=== PATIENT | male | born 1975 | race Caucasian/White ===

== ENCOUNTER 2024-08-20 10:20 | Observation (INO) ==
[2024-08-20 11:16] LABS: Basophils # (auto) 0.08 K/uL (0.00-0.20); Basophils % (auto) 1.2 %; Eosinophils # (auto) 0.21 K/uL (0.00-0.50); Eosinophils % (auto) 3.2 %; Hematocrit (blood only) 44.1 % (42.0-52.0); Hemoglobin 15.9 g/dl (14.0-18.0); Immature Granulocytes # (auto) 0.01 K/uL (0.01-0.20); Immature Granulocytes % (auto) 0.2 %; Lymphocytes # (auto) 2.02 K/uL (1.20-3.40); Lymphocytes % (auto) 30.7 %; Mean Corpuscular Hemoglobin 29.6 pg (25.0-34.0); Mean Corpuscular Hgb Conc 36.1 g/dL (32.0-36.0); Mean Corpuscular Volume 82.1 fL (80.0-100.0); Monocytes # (auto) 0.45 K/uL (0.11-0.59); Monocytes % (auto) 6.8 %; Neutrophils # (auto) 3.82 K/uL (1.40-6.50); Neutrophils % (auto) 57.9 %; Platelet Count 503 K/uL (130-400); RDW Coefficient of Variation 12.4 % (11.5-14.5); RDW Standard Deviation 37.1 fL (36.4-46.3); Red Blood Count 5.37 M/uL (4.70-6.10); White Blood Count 6.59 K/ul (4.8-10.8)
--- NOTE | 2024-08-20 11:20 | Emergency Department Note ---
History of Present Illness General Chief complaint: Dizziness Stated complaint: NUMBNESS DOWN L ARM, LIGHTHEADED, TACHY Time Seen by Provider: 08/20/24 11:05 Source: patient, RN notes reviewed and old records reviewed (Old medical records were attempted to be reviewed but there are no old records at this hospital. Nurse's notes were reviewed and I agree with.) Mode of arrival: ambulatory Limitations: no limitations History of Present Illness This patient is a 48-year-old male who comes in after having an episode where his left arm got numb and tingly. 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 It may have been slightly weak. There are no other associated symptoms besides he felt lightheaded and felt like his heart was racing he felt anxious. He had no numbness or weakness in the face or leg. no change in vision. no difficulty speaking or swallowing .no headache. He feels fine at present he is never had this before no neck pain. No chest pain. no shortness of breath. No fall or trauma. he did not have an electrical shock. Home Medications Medication Instructions Recorded Confirmed Type No Known Home Medications 08/20/24 08/20/24 History Allergies Allergy/AdvReac Type Severity Reaction Status Date / Time No Known Allergies Allergy Unverified 08/20/24 12:41 Past Med/Surg History Problem List (Updated 08/20/24 @ 13:32 by Maurice Pandya MD) TIA (transient ischemic attack) (Acute) Numbness and tingling in left arm (Acute) Social History Smoking Status: Never smoker Feels Safe at Home: Yes Immunizations: Past medical historydenies significant past medical history. Specifically denies diabetes, hypertension, hypercholesteremia, cardiac disease, neurologic disease, stroke or TIA Allergiesno known drug allergies Medicationsnone Social history does not smoke he drinks occasionally. Denies drug use Review of Systems A total of 10 systems reviewed and were otherwise negative Physical Exam Vital Signs Vital Signs - 24 hr 08/20/24 10:25 08/20/24 11:40 08/20/24 12:07 Temperature 36.8 C Temperature Source Temporal Artery Scan Pulse Rate 101 H 86 Pulse Rate [Apical] Pulse Rhythm Regular Pulse Rhythm [Apical] Pulse Strength Normal Pulse Strength [Apical] Respiratory Rate 16 Respiratory Effort / Characteristics Non-Labored Spontaneous Respiratory Depth Normal Respiratory Pattern Regular Blood Pressure 163/109 H Blood Pressure [Right Arm] Blood Pressure Mean 127 Blood Pressure Mean [Right Arm] Blood Pressure Position Sitting Blood Pressure Position [Right Arm] Pulse Oximetry 99 98 Oxygen Delivery Method Room Air Room Air Sepsis Recent Fever Within 48 Hours No Sepsis New/Unexplained Change in Mental Status No Sepsis Action Taken by Nursing No Action Required 08/20/24 12:07 08/20/24 12:07 Temperature 36.9 C Temperature Source Oral Pulse Rate 78 Pulse Rate [Apical] 86 Pulse Rhythm Regular Pulse Rhythm [Apical] Regular Pulse Strength Pulse Strength [Apical] Normal Respiratory Rate 20 20 Respiratory Effort / Characteristics Non-Labored Spontaneous Respiratory Depth Normal Respiratory Pattern Regular Blood Pressure Blood Pressure [Right Arm] 130/75 Blood Pressure Mean Blood Pressure Mean [Right Arm] 93 Blood Pressure Position Blood Pressure Position [Right Arm] Semi-fowlers Pulse Oximetry 98 98 Oxygen Delivery Method Room Air Room Air Sepsis Recent Fever Within 48 Hours Sepsis New/Unexplained Change in Mental Status Sepsis Action Taken by Nursing General: Well developed well nourished middle-age male who appears asymptomatic and in no acute distress, breathing comfortably on room air. Normal speech HEENT: Normal cephalic atraumatic. Pupils are equal round and reactive to light. Extraocular movements are intact. Oropharynx is pink with moist mucous membranes. No swelling of the mouth lips or tongue. Neck: Supple with a midline trachea. No meningeal signs or stiffness, no JVD or bruits. No Stridor. Chest: Clear to auscultation bilaterally. No wheezes or rhonchi. No increased work of breathing. Heart: Regular rate and rhythm without murmurs or gallops. Abdomen: Soft nontender, nondistended without rebound guarding or rigidity. Extremities: No cyanosis clubbing or edema. No calf tenderness or assymetry Spine/Back. Non tender to palpation. No CVA tenderness Skin: Good turgor without rashes. Neurologic exam: Cranial nerves two through 12 are intact. Motor and sensation are intact and symmetrical throughout. No tremor. No pronator drift. Finger- nose intact. Course Administered Medications Discontinued Medications Aspirin (Aspirin 81 Mg Chew) 324 mg PO NOW STA Stop: 08/20/24 12:33 Last Admin: 08/20/24 12:39 Dose: 324 mg Documented By: EVAN Ioversol (Optiray 320 125ml) 120 ml IV ONCE ONE Stop: 08/20/24 11:55 Last Admin: 08/20/24 11:55 Dose: 120 ml Documented By: HANSA Medical Decision Making Differential Diagnosis Peripheral neuropathy, neck or disc related process, central neurologic process/stroke/TIA, peripheral nerve process, electrolyte or metabolic abnormality, cardiac disease, infection Medical Records Attestation: I reviewed the patient's medical records. Home Medications Current Medication List: was personally reviewed by hi Laboratory Data Attestation: I reviewed the patient's lab results. 08/20/24 10:43 08/20/24 10:43 Lab Results 08/20/24 Range/Units 10:43 WBC 6.59 (4.8-10.8) K/ul RBC 5.37 (4.70-6.10) M/uL Hgb 15.9 (14.0-18.0) g/dl Hct 44.1 (42.0-52.0) % MCV 82.1 (80.0-100.0) fL MCH 29.6 (25.0-34.0) pg MCHC 36.1 H (32.0-36.0) g/dL RDW Std Deviation 37.1 (36.4-46.3) fL RDW Coeff of Joselin 12.4 (11.5-14.5) % Plt Count 503 H (130-400) K/uL MPV 9.0 L (9.4-12.4) fL Immature Gran % (Auto) 0.2 % Neut % (Auto) 57.9 % Lymph % (Auto) 30.7 % [place] % (Auto) 6.8 % Eos % (Auto) 3.2 % Baso % (Auto) 1.2 % Neut # (Auto) 3.82 (1.40-6.50) K/uL Lymph # (Auto) 2.02 (1.20-3.40) K/uL [place] # (Auto) 0.45 (0.11-0.59) K/uL Eos # (Auto) 0.21 (0.00-0.50) K/uL Baso # (Auto) 0.08 (0.00-0.20) K/uL Immature Gran # (Auto) 0.01 (0.01-0.20) K/uL PT 10.9 (9.0-12.0) Seconds INR 1.0 (0.9-1.1) APTT 29 (21-31) Seconds PTT Ratio 1.1 Sodium 137 (136-145) mmol/L Potassium 3.6 (3.5-5.1) mmol/L Chloride 102 (98-107) mmol/L Carbon Dioxide 26 (21-32) mmol/L Anion Gap 9 (3-11) BUN 15 (6-23) mg/dl Creatinine 1.02 (0.6-1.4) mg/dl Est Cr Clr Drug Dosing 97.7 ml/min eGFR 91.79 BUN/Creatinine Ratio 14.7 (10-20) Glucose 112 H (70-99(Fasting)) mg/dl Calcium 9.6 (8.6-10.3) mg/dl Magnesium 1.8 (1.7-2.4) mg/dl Total Bilirubin 0.6 (0.2-1.0) mg/dl AST 18 (13-39) U/L ALT 31 (7-52) U/L Alkaline Phosphatase 44 (34-104) U/L Troponin I High Sens 2.4 (0-20) pg/ml Total Protein 7.1 (6.0-8.3) gm/dl Albumin 4.6 (3.4-5.0) gm/dl Globulin 2.5 (2.5-4.0) gm/dl Albumin/Globulin Ratio 1.8 (0.9-2) Imaging Data Attestation: I personally reviewed and interpreted this imaging study as follows: My Impression: Chest x-rayno acute infiltrate, failure, pneumothorax seen Radiologist's Impression: Chest X-Ray 08/20/24 10:51 XR chest 1V portable HISTORY: 48 years-old Male Chest pain, nonspecific COMPARISON: None TECHNIQUE: AP view of the chest FINDINGS: Cardiomediastinal and hilar silhouettes are within normal limits. No pneumothorax, pleural effusion, airspace consolidation or pulmonary edema. Bones appear grossly intact. IMPRESSION: No acute process. ACT 112: Negative or not required by law. The above report was generated using voice recognition software. It may contain grammatical, syntax or spelling errors. Electronically signed by: Crow Minor M.D. 08/20/2024 11:[address] 08/20/24 11:14 CT head/brain wo con CLINICAL HISTORY: 48 years-old Male with neuro deficit, acute stroke suspected. Acute stroke like symptoms TECHNIQUE: Multiple axial CT images of the head were obtained without contrast. A dose lowering technique was utilized adhering to the principles of ALARA. COMPARISON: CTA head of same day FINDINGS: No acute intracranial hemorrhage, midline shift, intracranial mass, hydrocephalus, territorial ischemia or abnormal extra-axial collection. The calvarium is intact. The paranasal sinuses, mastoid air cells, and middle ear cavities are clear. IMPRESSION: No acute intracranial abnormality identified. ACT 112: Negative or not required by law. The above report was generated using voice recognition software. It may contain grammatical, syntax or spelling errors. Electronically signed by: Crow Minor M.D. 08/20/2024 12:14 PM Head CTA 08/20/24 11:14 CTA ANGIOGRAPHY OF THE HEAD CLINICAL HISTORY: neuro deficit, acute stroke suspected COMPARISON STUDY: No previous studies for comparison. TECHNIQUE: Helical axial images of the head were obtained following uneventful intravenous administration of 120 cc of Optiray. Sagittal and coronal reconstructions were viewed as well as maximal intensity projections on an independent 3-D workstation. Automated exposure control was utilized for the study. A dose lowering technique was utilized adhering to the principles of ALARA. FINDINGS: No acute intracranial hemorrhage, midline shift or mass effect is present. Brain volume is normal. Ventricular system is normal. Basal cisterns are patent. There is an apparent 3 mm filling defect within the inferior aspect of the right cavernous carotid on image 87 of 254. Nonocclusive thrombus cannot be excluded. No additional abnormalities are identified on this exam. The bilateral M1, M2, A1 and A2 segments are patent. The posterior circulation is intact. There is persistence of the right posterior cerebral artery. Major dural sinuses are patent. IMPRESSION: 1. Apparent 3 mm filling defect within the inferior aspect of the right cavernous carotid. Although this may be artifactual, a nonocclusive thrombus cannot be excluded. MRI of the brain and MRA of the head could be considered for further evaluation. Findings discussed with Dr. Pandya at time of dictation. 2. Otherwise, unremarkable CTA of the head. ACT 112: Negative or not required by law. Electronically signed by: Theo Watt M.D. 08/20/2024 12:22 PM Neck CTA 08/20/24 11:14 CT ANGIOGRAPHY OF THE NECK WITH CONTRAST CLINICAL HISTORY: neuro deficit, acute stroke suspected COMPARISON STUDY: No previous studies for comparison. Technique: CT angiography of the carotid and vertebral arteries was obtained using Optiray and 3D reconstruction on an independent workstation. NASCET criteria was utilized. Automated exposure control was utilized for the study. A dose lowering technique was utilized adhering to the principles of ALARA. CT DOSE: 1207.93 mGy.cm Findings: Visualized portions of the lung apices are unremarkable. There is no cervical lymphadenopathy. There are no cervical spine fractures. There is a 1.4 cm cystic left lobe thyroid nodule. The bilateral common carotid, cervical internal carotid and vertebral arteries are patent. There is no stenosis or dissection within the neck. There is no aneurysm within the neck. CTA of the head will be reported separately. IMPRESSION: Unremarkable CTA of the neck. ACT 112: Negative or not required by law. Electronically signed by: Theo Watt M.D. 08/20/2024 12:17 PM ECG Data Indication: + chest pain Rate (beats per minute): 88 Rhythm: + normal sinus ECG Intervals/blocks: + Normal QRS, + Normal QT and + Normal ME ECG [place]: + Normal ECG ST segments: + Normal ST segments ECG Findings: no PACs or no PVCs Comparison ECG Date: no prior available MDM Narrative This patient comes in as scribed above. He was placed in room B12. Here for treatment evaluation of an episode where his left arm felt tingly. It lasted about a minute. He has no neurologic deficits at present and is a healthy middle-age male without significant risk factors for neurologic process EKG was obtained and shows no ischemic changes or ectopy. Blood work was obtained also I did neuroimaging with CAT scan of the head as well as angiography of the head neck. His blood work was unremarkable. EKG was unremarkable. CAT scan of his head was unremarkable however on the CT angiography of his neck there is a small filling defect in the right internal carotid. It could be artifactual but I am concerned after talking to the radiologist that he does need a full stroke workup given that his symptoms were on the left side is possible that it could be from a right carotid clot or lesion. I did the patient aspirin 324 mg chewable he will need an MRI and further inpatient workup. I did discuss the case at length with the [facility] hospitalist team and they saw in the ER will admit/observe him for these measures Continuous cardiac monitoring: Orders placed in EMR for continuous sexologist call upon my evaluation, the patient noted to be in normal sinus rhythm rate of 75 Impression & Plan TIA (transient ischemic attack), Numbness and tingling in left arm Discharge Plan Visit Data Chief Complaint: Dizziness Stated Complaint: NUMBNESS DOWN L ARM, LIGHTHEADED, TACHY ED Provider: Maurice Pandya Discharge Problem: TIA (transient ischemic attack), Numbness and tingling in left arm Forms Stand Alone Forms: [employer] Prescriptions Prescriptions: No Action No Known Home Medications Referrals Referrals: PCP,NO [Physician] -
[2024-08-20 11:33] LABS: Albumin Globulin Ratio 1.8 (0.9-2); Albumin Level 4.6 gm/dl (3.4-5.0); BUN Creatinine Ratio 14.7 (10-20); Bilirubin,Total 0.6 mg/dl (0.2-1.0); Calcium 9.6 mg/dl (8.6-10.3); Creatinine Clr Calc Pharmacy 97.7 ml/min; Globulin 2.5 gm/dl (2.5-4.0); Magnesium 1.8 mg/dl (1.7-2.4); Potassium 3.6 mmol/L (3.5-5.1); Total Protein 7.1 gm/dl (6.0-8.3)
--- NOTE | 2024-08-20 11:33 | XRay Report ---
XR chest 1V portable HISTORY: 48 years-old Male Chest pain, nonspecific COMPARISON: None TECHNIQUE: AP view of the chest FINDINGS: Cardiomediastinal and hilar silhouettes are within normal limits. No pneumothorax, pleural effusion, airspace consolidation or pulmonary edema. Bones appear grossly intact. IMPRESSION: No acute process. ACT 112: Negative or not required by law. The above report was generated using voice recognition software. It may contain grammatical, syntax o r spelling errors. Electronically signed by: Crow Minor M.D. 08/20/2024 11:32 AM
[2024-08-20 11:36] LABS: Troponin I High Sensitivity 2.4 pg/ml (0-20)
[2024-08-20 11:41] LABS: Partial Thromboplastin Ratio 1.1; Partial Thromboplastin Time 29 Seconds (21-31); Prothrombin Time 10.9 Seconds (9.0-12.0)
[2024-08-20] MEDS: OPTIRAY 320 125ml IV ONE (11:55)
--- NOTE | 2024-08-20 12:17 | CT Scan Report ---
CT head/brain wo con CLINICAL HISTORY: 48 years-old Male with neuro deficit, acute stroke suspected. Acute stroke like sy mptoms TECHNIQUE: Multiple axial CT images of the head were obtained without contrast. A dose lowering tech nique was utilized adhering to the principles of ALARA. COMPARISON: CTA head of same day FINDINGS: No acute intracranial hemorrhage, midline shift, intracranial mass, hydrocephalus, territorial ischem ia or abnormal extra-axial collection. The calvarium is intact. The paranasal sinuses, mastoid air cells, and middle ear cavities are clear . IMPRESSION: No acute intracranial abnormality identified. ACT 112: Negative or not required by law. The above report was generated using voice recognition software. It may contain grammatical, syntax o r spelling errors. Electronically signed by: Crow Minor M.D. 08/20/2024 12:14 PM
--- NOTE | 2024-08-20 12:18 | CT Scan Report ---
CT ANGIOGRAPHY OF THE NECK WITH CONTRAST CLINICAL HISTORY: neuro deficit, acute stroke suspected COMPARISON STUDY: No previous studies for comparison. Technique: CT angiography of the carotid and vertebral arteries was obtained using Optiray and 3D rec onstruction on an independent workstation. NASCET criteria was utilized. Automated exposure control was utilized for the study. A dose lowering technique was utilized adhering to the principles of ALA RA. CT DOSE: 1207.93 mGy.cm Findings: Visualized portions of the lung apices are unremarkable. There is no cervical lymphadenopat hy. There are no cervical spine fractures. There is a 1.4 cm cystic left lobe thyroid nodule. The chepe ateral common carotid, cervical internal carotid and vertebral arteries are patent. There is no steno sis or dissection within the neck. There is no aneurysm within the neck. CTA of the head will be repo rted separately. IMPRESSION: Unremarkable CTA of the neck. ACT 112: Negative or not required by law. Electronically signed by: Theo Watt M.D. 08/20/2024 12:17 PM
--- NOTE | 2024-08-20 12:23 | CT Scan Report ---
CTA ANGIOGRAPHY OF THE HEAD CLINICAL HISTORY: neuro deficit, acute stroke suspected COMPARISON STUDY: No previous studies for comparison. TECHNIQUE: Helical axial images of the head were obtained following uneventful intravenous administr ation of 120 cc of Optiray. Sagittal and coronal reconstructions were viewed as well as maximal inten sity projections on an independent 3-D workstation. Automated exposure control was utilized for the study. A dose lowering technique was utilized adhering to the principles of ALARA. FINDINGS: No acute intracranial hemorrhage, midline shift or mass effect is present. Brain volume is normal. Ventricular system is normal. Basal cisterns are patent. There is an apparent 3 mm filling de fect within the inferior aspect of the right cavernous carotid on image 87 of 254. Nonocclusive throm bus cannot be excluded. No additional abnormalities are identified on this exam. The bilateral M1, M2 , A1 and A2 segments are patent. The posterior circulation is intact. There is persistence of t he right posterior cerebral artery. Major dural sinuses are patent. IMPRESSION: 1. Apparent 3 mm filling defect within the inferior aspect of the right cavernous carotid. Although t his may be artifactual, a nonocclusive thrombus cannot be excluded. MRI of the brain and MRA of the h ead could be considered for further evaluation. Findings discussed with Dr. Pandya at time of dictat ion. 2. Otherwise, unremarkable CTA of the head. ACT 112: Negative or not required by law. Electronically signed by: Theo Watt M.D. 08/20/2024 12:22 PM
[2024-08-20] MEDS: ASPIRIN 81 MG CHEW PO STA (12:39)
--- NOTE | 2024-08-20 12:44 | Electrocardiogram Report ---
Test Reason : Blood Pressure : */* mmHG Vent. Rate : 88 BPM Atrial Rate : 88 BPM P-R Int : 142 ms QRS Dur : 86 ms QT Int : 352 ms P-R-T Axes : 63 16 33 degrees QTcB Int : 425 ms Normal sinus rhythm Possible Left atrial enlargement Borderline ECG No previous ECGs available Confirmed by Harris Brody ([id number]) on 08/20/2024 12:44:08 PM Referred By: Confirmed By: Harris Brody
--- NOTE | 2024-08-20 13:06 | History & Physical Report ---
Date of Service August 20, 2024 Assessment & Plan (1) Numbness and tingling in left arm: Plan: Possible TIA Acute Left arm weakness and numbness Elevated Blood Pressure - Admit to PCU for observation - Stroke order set completed, no indication for thrombolytic - CT head reviewed and is showing Right carotid 3 mm filling defect within the inferior aspect of the right cavernous carotid - MRI and MRA brain ordered to further evaluate - Tele-neurology contacted by the ER- Recs aspirin and plavix - Will allow permissive hypertension with SBP 140-170 - Neurology consulted - PT/OT consults placed - Check A1C, lipids with am labs - Full dose asa given in the ER, start asa 81 mg daily and atorvastatin 40 mg HS DVT ppx: teds, scds, ambulatory Lines: PIV x 1 FEN/GI: Regular diet CODE: Full code Dispo: From home, likely to remain in the hospital x 1-2 days A total of 75 minutes were spent with greater than 50% of that time face to face with the patient, personally reviewing all current laboratories, imaging studies, past medication reconciliation, outpatient chart review, and discussion with specialists to collaborate care for the patient with attending. Please see attending documentation for corrections and/or additions. History of Present Illness Chief Complaint: Left arm weakness and numbness Primary Care Provider: BALWINDER SUE This is a 48-year-old male without past medical history, who presented to the ER today while having developed left arm weakness and numbness, left hand weakness and was trying to tighten up a fitting with pipe, which lasted approximately 1 minute. He has never had this happen before. 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 Denies any electrical shock, trauma, or injury sustained to this area of his body or head or neck. he admits to transient dizziness when the numbness occurred. Denies any changes in vision, headache, changes in smell, nausea, vomiting, etc. He does not take any home medications. Pt admits to feeling anxious while being here, but otherwise his symptoms have resolved. Patient underwent CT imaging which showed a right carotid artery filling deficit measuring 3 mm which was reported by the radiologist as possibly artifact versus a filling defect caused by thrombus, and therefore MRI is recommended. No surgical history. Family Hx: Dad: Type I Diabetes, Brother: 48 yo had Heart attack, now age 51 and also hx of colon cancer Social hx: no tobacco use, occasional alcohol use, no ilicit drug use. Allergies Allergy/AdvReac Type Severity Reaction Status Date / Time No Known Allergies Allergy Unverified 08/20/24 12:41 Home Medications Medication Instructions Recorded Confirmed Type No Known Home Medications 08/20/24 08/20/24 History Past Med/Surg History Problem List (Updated 08/20/24 @ 13:32 by Maurice Pandya MD) TIA (transient ischemic attack) (Acute) Numbness and tingling in left arm (Acute) Social History Smoking Status: Never smoker Feels Safe at Home: Yes Review of Systems Review of Systems: Constitutional: No fever, sweats or chills Eyes: No diplopia, no worsening or blurred vision ENT: normal hearing, no trouble swallowing Respiratory: No cough, sputum, dyspnea at rest or on exertion Cardiovascular: No chest pain, tightness or palpitations Abdomen: No pain, nausea, vomiting, diarrhea or constipation Musculoskeletal: No joint pain, calf pain, swelling Neurologic: As per HPI, currently no weakness, numbness/tingling, or balance problems Psychiatric: No anxiety or depression Skin: No rash or itch Physical Exam Physical Exam: Please refer to physical addendum per attending. Results & Data Results & Data Vital Signs (Past 12 Hours) Vital Signs Temp Pulse Pulse Resp BP BP Pulse Ox 08/20/24 12:07 78 20 98 08/20/24 12:07 36.9 C 86 20 130/75 98 08/20/24 12:07 98 08/20/24 11:40 86 08/20/24 10:25 36.8 C 101 H 16 163/109 H 99 O2 Del Method 08/20/24 12:07 Room Air 08/20/24 12:07 Room Air 08/20/24 12:07 Room Air 08/20/24 11:40 08/20/24 10:25 Room Air Laboratory Results 08/20/24 10:43 WBC 6.59 RBC 5.37 Hgb 15.9 Hct 44.1 MCV 82.1 MCH 29.6 MCHC 36.1 H RDW Std Deviation 37.1 RDW Coeff of Joselin 12.4 Plt Count 503 H MPV 9.0 L Immature Gran % (Auto) 0.2 Neut % (Auto) 57.9 Lymph % (Auto) 30.7 Bland % (Auto) 6.8 Eos % (Auto) 3.2 Baso % (Auto) 1.2 Neut # (Auto) 3.82 Lymph # (Auto) 2.02 Bland # (Auto) 0.45 Eos # (Auto) 0.21 Baso # (Auto) 0.08 Immature Gran # (Auto) 0.01 PT 10.9 INR 1.0 APTT 29 PTT Ratio 1.1 Sodium 137 Potassium 3.6 Chloride 102 Carbon Dioxide 26 Anion Gap 9 BUN 15 Creatinine 1.02 Est Cr Clr Drug Dosing 97.7 eGFR 91.79 BUN/Creatinine Ratio 14.7 Glucose 112 H Calcium 9.6 Magnesium 1.8 Total Bilirubin 0.6 AST 18 ALT 31 Alkaline Phosphatase 44 Troponin I High Sens 2.4 Total Protein 7.1 Albumin 4.6 Globulin 2.5 Albumin/Globulin Ratio 1.8 Diagnostic Findings Chest X-Ray 08/20/24 10:51 XR chest 1V portable HISTORY: 48 years-old Male Chest pain, nonspecific COMPARISON: None TECHNIQUE: AP view of the chest FINDINGS: Cardiomediastinal and hilar silhouettes are within normal limits. No pneumothorax, pleural effusion, airspace consolidation or pulmonary edema. Bones appear grossly intact. IMPRESSION: No acute process. ACT 112: Negative or not required by law. The above report was generated using voice recognition software. It may contain grammatical, syntax or spelling errors. Electronically signed by: Crow Minor M.D. 08/20/2024 11:[address] 08/20/24 11:14 CT head/brain wo con CLINICAL HISTORY: 48 years-old Male with neuro deficit, acute stroke suspected. Acute stroke like symptoms TECHNIQUE: Multiple axial CT images of the head were obtained without contrast. A dose lowering technique was utilized adhering to the principles of ALARA. COMPARISON: CTA head of same day FINDINGS: No acute intracranial hemorrhage, midline shift, intracranial mass, hydro cephalus, territorial ischemia or abnormal extra-axial collection. The calvarium is intact. The paranasal sinuses, mastoid air cells, and middle ear cavities are clear. IMPRESSION: No acute intracranial abnormality identified. ACT 112: Negative or not required by law. The above report was generated using voice recognition software. It may contain grammatical, syntax or spelling errors. Electronically signed by: Crow Minor M.D. 08/20/2024 12:14 PM Head CTA 08/20/24 11:14 CTA ANGIOGRAPHY OF THE HEAD CLINICAL HISTORY: neuro deficit, acute stroke suspected COMPARISON STUDY: No previous studies for comparison. TECHNIQUE: Helical axial images of the head were obtained following uneventful intravenous administration of 120 cc of Optiray. Sagittal and coronal reconstructions were viewed as well as maximal intensity projections on an independent 3-D workstation. Automated exposure control was utilized for the study. A dose lowering technique was utilized adhering to the principles of ALARA. FINDINGS: No acute intracranial hemorrhage, midline shift or mass effect is present. Brain volume is normal. Ventricular system is normal. Basal cisterns are patent. There is an apparent 3 mm filling defect within the inferior aspect of the right cavernous carotid on image 87 of 254. Nonocclusive thrombus cannot be excluded. No additional abnormalities are identified on this exam. The bilateral M1, M2, A1 and A2 segments are patent. The posterior circulation is intact. There is persistence of the right posterior cerebral artery. Major dural sinuses are patent. IMPRESSION: 1. Apparent 3 mm filling defect within the inferior aspect of the right cavernous carotid. Although this may be artifactual, a nonocclusive thrombus cannot be excluded. MRI of the brain and MRA of the head could be considered for further evaluation. Findings discussed with Dr. Pandya at time of dictation. 2. Otherwise, unremarkable CTA of the head. ACT 112: Negative or not required by law. Electronically signed by: Theo Watt M.D. 08/20/2024 12:22 PM Neck CTA 08/20/24 11:14 CT ANGIOGRAPHY OF THE NECK WITH CONTRAST CLINICAL HISTORY: neuro deficit, acute stroke suspected COMPARISON STUDY: No previous studies for comparison. Technique: CT angiography of the carotid and vertebral arteries was obtained using Optiray and 3D reconstruction on an independent workstation. NASCET criteria was utilized. Automated exposure control was utilized for the study. A dose lowering technique was utilized adhering to the principles of ALARA. CT DOSE: 1207.93 mGy.cm Findings: Visualized portions of the lung apices are unremarkable. There is no cervical lymphadenopathy. There are no cervical spine fractures. There is a 1.4 cm cystic left lobe thyroid nodule. The bilateral common carotid, cervical internal carotid and vertebral arteries are patent. There is no stenosis or dissection within the neck. There is no aneurysm within the neck. CTA of the head will be reported separately. IMPRESSION: Unremarkable CTA of the neck. ACT 112: Negative or not required by law. Electronically signed by: Theo Watt M.D. 08/20/2024 12:17 PM ECG Additional Comments: Reviewed personally, NSR, no signs of ST wave inversions or ischemia. No cardiac symptoms. Code Status & VTE Plan Code Status Full code - discussed with pt at bedside Supervising Physician Co-Signing Physician Notes Patient is a 48-year-old male with no significant past medical history presents with sudden onset of left upper extremity numbness associated with tingling/numbness, transient weakness, dizziness and palpitations which lasted for about 1 minute. Currently his symptoms resolved. 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 He denies similar events in the past. Also denies any change in vision, facial deformity, dysphagia, dysarthria, bowel or bladder incontinence, headache, tick bite, syncope, chest pain, dyspnea. Please review HPI for complete details of presentation.CT head showed no acute process. Head CTA showed 3 mm filling defect within the inferior aspect of the right cavernous carotid. Neck CTA unremarkable. Noted to have elevated blood pressure while in ED. Physical Exam: Vitals signs as noted above General Appearance:Moderately built and nourished, no apparent distress Head: normocephalic, Atraumatic Eyes: normal inspection, EOMI Neck: supple, Trachea midline Respiratory/Chest: Normal breath sounds, CTA, No accessory muscle use Cardiovascular: S1, S2, No murmur Abdomen/GI:Soft, Non tender, Bowel sounds present Extremities/Musculoskeletal:normal inspection, no edema Neurologic/Psych:AAOX3, grossly no focal neurological deficits Skin: normal color, warm Strokelike symptoms Suspected TIA Not a candidate for tPA- Passed the window period Stroke work up including lipid panel, A1C, MRI Brain, MRA Head, ECHO Speech and swallow eval Start aspirin, Lipitor Neuro checks, Neurology consult PT/OT Allow permissive HTN in setting of acute CVA Hypertensive urgency Likely situational Monitor blood pressure closely I personally interviewed and examined at bedside. Patient's care is coordinated with Irene Wei PA-C. I have reviewed the advanced practitioner's documentation, and I agree with plan of care. Please refer to the documentation above for details of patient's presentation and for discussion of other issues. I spent a total [id number] coordinating, documenting, and providing care for this patient excluding time spent in the performance of separately billed services.
[2024-08-20] MEDS ORDERED: PHARMACIST DISCHARGE MED REC CONSULT PRN (15:55)
[2024-08-20] MEDS ORDERED: ONDANSETRON INJ 2 MG/ML 2 ML VIAL IV PRN (15:55)
[2024-08-20] MEDS ORDERED: ACETAMINOPHEN 325 MG TAB PO PRN (15:55)
[2024-08-20] MEDS ORDERED: POLYETHYLENE (MIRALAX) 17 GM PACK PO PRN (15:55)
--- NOTE | 2024-08-20 16:56 | XRay Report ---
Clinical History: Screening Technique: 3 views of the orbits are submitted for review. Findings: No definite sinus opacification is seen. No fracture is evident. No focal osseous lesion is identified. There are no radiopaque foreign bodies. Impression: No visible foreign body. No contraindication to MRI is seen Electronically signed by Kota Anne 08-20-2024 4:56 PM
[2024-08-20] MEDS: LORazepam 2 MG/1 ML VIAL IV ONE (17:07)
--- NOTE | 2024-08-20 17:45 | Magnetic Resonance Report ---
Clinical history: Left extremity weakness Technique: Magnetic resonance angiography was performed of the [place] using a 3 D time of flight technique. Angiographic reconstructions were obtained Findings: The visualized internal carotid arteries appear unremarkable bilaterally. No definite stenosis or aneurysm is identified of the anterior, middle, or posterior cerebral artery circulations bilaterally. The cerebellar arteries are patent. The basilar artery appears unremarkable. No vascular malformation is seen. No other definite abnormality is noted. Impression: Unremarkable MRA of the brain Electronically signed by Kota Anne 08-20-2024 5:45 PM
[2024-08-20] MEDS: GADOBUTROL 65ML VIAL IV ONE (17:54)
[2024-08-21 06:49] LABS: Hematocrit (blood only) 46.1 % (42.0-52.0); Hemoglobin 16.3 g/dl (14.0-18.0); Mean Corpuscular Hemoglobin 29.3 pg (25.0-34.0); Mean Corpuscular Hgb Conc 35.4 g/dL (32.0-36.0); Mean Corpuscular Volume 82.8 fL (80.0-100.0); Platelet Count 472 K/uL (130-400); RDW Coefficient of Variation 12.5 % (11.5-14.5); RDW Standard Deviation 37.7 fL (36.4-46.3); Red Blood Count 5.57 M/uL (4.70-6.10); White Blood Count 6.81 K/ul (4.8-10.8)
[2024-08-21 07:08] LABS: BUN Creatinine Ratio 13.9 (10-20); Calcium 9.9 mg/dl (8.6-10.3); Chol HDL Ratio 4.8 (0-5); Creatinine Clr Calc Pharmacy 84.9 ml/min; Estimated Average Glucose 111 mg/dl; Hemoglobin A1C 5.5 % (4.5-5.6); Magnesium 2.1 mg/dl (1.7-2.4); Potassium 4.3 mmol/L (3.5-5.1)
[2024-08-21] MEDS: ASPIRIN 81 MG ECTAB PO SCH (09:05)
[2024-08-21] MEDS: ATORVASTATIN 40 MG TAB PO SCH (09:05)
[2024-08-21 11:31] VITALS: RESP 16; O2SAT 96
--- NOTE | 2024-08-21 12:28 | Magnetic Resonance Report ---
MRI OF THE BRAIN WITHOUT AND WITH IV CONTRAST CLINICAL HISTORY: TIA COMPARISON STUDY: Head CT and CTA of the head performed earlier today. TECHNIQUE: Utilizing a 1.5 Lora magnet and dedicated coil, multiplanar, multiecho imaging of the br ain was performed pre and postcontrast administration. IV administration of 9 mL of Gadavist contras t was uneventful. FINDINGS: There are no foci of restricted diffusion to suggest acute infarct. No acute intracranial h emorrhage, midline shift or mass effect is present. Brain volume is normal. Ventricular system is nor mal. Basal cisterns are patent. Flow-voids for the major intracranial vessels are present. There is n o intracranial mass or pathologic enhancement. No significant parenchymal signal abnormality is ident ified. Calvarial signal is normal. Sinuses and orbits are unremarkable. IMPRESSION: Unremarkable MRI of the brain. No evidence for acute infarct. ACT 112: Negative or not required by law. Electronically signed by: Theo Watt M.D. 08/21/2024 12:26 PM
--- NOTE | 2024-08-21 12:29 | Hospitalist Progress Note ---
Date of Service August 21, 2024 Assessment & Plan (1) Numbness and tingling in left arm: Plan: Possible TIA Acute Left arm weakness and numbness Elevated Blood Pressure - Stroke order set completed, no indication for thrombolytic - CT head reviewed and is showing Right carotid 3 mm filling defect within the inferior aspect of the right cavernous carotid - MRI and MRA brain ordered to further evaluate-Remained unremarkable - Tele-neurology contacted by the ER- Recs aspirin and plavix - Will allow permissive hypertension with SBP 140-170 - Neurology consulted-awaiting input and recommendation - PT/OT consults placed-has been ambulating without any difficulties - Check A1C-5. See5, lipids with am labs-triglycerides 92, total cholesterol 240, LDL 170 and HDL 50 - Full dose asa given in the ER, start asa 81 mg daily and atorvastatin 40 mg HS -Remains medically stable without any neurological symptoms on examination -He wants to be discharged and awaiting further recommendations -Echo of the heart showed normal LV systolic function with EF 60 to 65%, LV wall motion is normal, there is no LV abnormal relaxation, no significant valvular pathology and no interatrial shunt He was seen by neurologist and was advised to go home on aspirin 81 mg daily and low-dose statin He will be discharged home this afternoon DVT ppx: teds, scds, ambulatory Lines: PIV x 1 FEN/GI: Regular diet CODE: Full code Admission and Anticipated Discharge Date Admission Date: August 20, 2024 Subjective 08/21/2024 The patient was seen and examined in medical telemetry unit He was admitted with sudden onset of left upper extremity tingling and weakness 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 Denies any other symptoms and the symptoms resolved thereafter Denies any more symptoms this morning does not have any other associated neurological symptoms as well Review of Systems Review of Systems: All systems reviewed and are unremarkable except as noted below Physical Exam Physical Exam: Lying in bed without any acute distress Constitutional: well developed, well nourished and + obese; not ill appearing ENMT: external ear and nose normal, oropharynx normal Neck: trachea midline, no thyromegaly Respiratory: no respiratory distress Auscultation: lungs clear to auscultation bilaterally Cardiovascular: Rate/Rhythm: regular rate and regular rhythm; not tachycardic Heart Sounds: normal S1 and normal S2; no murmur Extremities: no edema Gastrointestinal (Abdomen): Inspection/Auscultation: normal bowel sounds; abdomen not distended Percussion/Palpation: abdomen soft; abdomen nontender Musculoskeletal: No acute arthritis involving any of the joints Neurologic: normal touch/pain/proprioception and moves all extremities; no focal motor deficits Psychiatric: A+Ox3, euthymic affect Lymphatic: no cervical or axillary lymphadenopathy Results & Data Results & Data Vital Signs (Past 12 Hours) Vital Signs Temp Pulse Pulse Resp BP BP Pulse Ox 08/21/24 11:30 36.5 C 80 16 122/80 96 08/21/24 08:08 94 H 08/21/24 07:42 36.5 C 94 H 18 131/90 97 08/21/24 02:44 36.5 C 64 18 126/77 97 O2 Del Method 08/21/24 11:30 Room Air 08/21/24 08:08 08/21/24 07:42 Room Air 08/21/24 02:44 Room Air Laboratory Results Short CBC 08/21/24 Range/Units 05:53 WBC 6.81 (4.8-10.8) K/ul Hgb 16.3 (14.0-18.0) g/dl Hct 46.1 (42.0-52.0) % Plt Count 472 H (130-400) K/uL BMP 08/21/24 05:53 Sodium 139 Potassium 4.3 Chloride 105 Carbon Dioxide 28 BUN 16 Creatinine 1.15 Glucose 103 H Calcium 9.9 Medications Administered Current Inpatient Medications Acetaminophen (Acetaminophen 325 Mg Tab) 650 mg PO Q4H PRN PRN Reason: Pain or Fever Stop: 09/19/24 15:54 Aspirin (Aspirin 81 Mg Ectab) 81 mg PO [facility] Stop: 09/20/24 08:59 Last Admin: 08/21/24 09:05 Dose: 81 mg Atorvastatin Calcium ([facility]atin 40 Mg Tab) [facility]: 09/20/24 08:59 Last Admin: 08/21/24 09:05 Dose: 40 mg Miscellaneous Information (Pharmacist Discharge Med Rec Consult) 1 each N/A UD PRN PRN Reason: Consult Stop: 09/19/24 15:54 Ondansetron HCl (Ondansetron Inj 2 Mg/Ml 2 Ml Vial) 4 mg IV Q6H PRN PRN Reason: Nausea Stop: 09/19/24 15:54 Polyethylene Glycol (Polyethylene (Miralax) 17 Gm Pack) 17 gm PO DAILY PRN PRN Reason: Constipation Stop: 09/19/24 15:54
--- NOTE | 2024-08-21 14:13 | Pharmacy Report ---
- Date of Service August 21, 2024 - Pharmacy CVA/TIA Medication Review Medications to Prevent Stroke handout has been added to the patients discharge packet. Antiplatelet(s) * Aspirin 81mg daily Cholesterol * High intensity statin: atorvastatin 40 mg daily DVT Prophylaxis * SCD knee Therapeutic Anticoagulation * No history of Afib/Aflutter noted Type 2 Diabetes * Patient does not have T2DM
--- NOTE | 2024-08-21 16:23 | Neurology Consultation ---
Date of Consultation August 21, 2024 Assessment & Plan (1) TIA (transient ischemic attack): This event this likely represents a TIA could be cervicogenic in nature with minimal numbness without associated weakness (2) Numbness and tingling in left arm: Could be cervicogenic in nature, if symptoms do recur the patient can get an MRI of his C-spine Plan Reviewed CTA of the head and neck with a questionable filling defect of the right ICA that appears to be artifactual, flow within this vessel is within normal. . Prevention continue aspirin 81 mg and atorvastatin 40 mg. Given the patient has no focal neurological deficits and his echocardiogram is within normal no evidence of any previous ischemia on the brain, continue risk factor modifications. Okay for discharge from neurology standpoint Telehealth Consultation Telehealth Information Telehealth Information: I performed this visit using a real-time telehealth connection between my location and the patients location ([facility]). After connecting through interactive tele-video, patient was identified by name and date of and/or wristband check.Patient (or authorized healthcare off premise service representative) was informed that this was a telemedicine visit and it was being conducted confidentially over secure lines. My office door was closed and no one else was present in the room with me.Patient (or authorized healthcare off premise service representative) provided consent to proceed with the visit, expressed an understanding of privacy and security of the telemedicine visit, and gave permission to have a hospital off premise service representative in the room in order to assist with the visit and to conduct portions of the visit, as needed. I informed the patient (or authorized healthcare off premise service representative) that I reviewed their record and presented the opportunity for them to ask any questions regarding the visit today. The patient agreed to participate. History of Present Illness Reason for Consultation: TIA Requesting Physician: Rula Buchanan MD Attending Physician: Rula Buchanan MD History of Present Illness 48-year-old male patient with no previous past medical history presented to the hospital yesterday reporting transient left upper extremity numbness that lasted for about 1 minute that brought him to the emergency room yesterday. He thought that his left hand might have been clumsy but he denies any significant weakness he does not visual changes denies any slurred speech or speech changes denies any facial numbness denies any leg numbness, denies any chest pain or palpitations denies any other neurologic associated symptoms. 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 Allergies Allergy/AdvReac Type Severity Reaction Status Date / Time No Known Allergies Allergy Unverified 08/20/24 12:41 Home Medications Medication Instructions Recorded Confirmed Type No Known Home Medications 08/20/24 08/20/24 History Patient History Social History Smoking Status: Never smoker Hx Alcohol Use: No Hx Substance Use: No Preferred Language: Portuguese Communication Ability: Effective Patent Attorney Required: No Beliefs That Will Affect Care: None Current Living Situation: Spouse Other Information That Helps Us Care for You: No Feels Safe at Home: Yes Safety Concerns: Feels Safe At This Time Assistive Devices: None Review of Systems Constitutional: Patient denies weight loss, fever, chills, and night sweats Eyes: Patient denies change in vision, tearing, pain, and redness ENT: Patient denies pain, bleeding, rhinorrhea, and dysphagia Cardiovascular: Patient denies chest pain, palpitation, dyspnea at rest, and dyspnea with exertion Respiratory: Patient denies shortness of breath, cough, wheezing, and productive cough GI: Patient denies reflux, pain, constipation, and diarrhea Skin: Patient denies rash, dryness, and itching Allergies/Immune System: Patient denies rhinorrhea, seasonal allergies, reaction to current MEDS, and joint swelling Endocrine: Patient denies weight loss, weight gain, temperature intolerance, and excessive thirst Neurological: All negative unless mentioned in the HPI Physical Exam General Constitutional: Appearance normally developed Head and face: normocephalic and atraumatic Eyes: no ptosis, no anisocoria, and no dysconjugate gaze Respiratory: normal effort Cardiovascular: regular rhythm and regular rate Abdomen: non distended Skin: no rashes, lesions, or ulcers noted Psychiatric: normal judgement and insight, normal mood, and normal affect NEUROLOGIC EXAMINATION: Mental Status:alert, oriented to time, place, person, normal recent memory, normal remote memory, normal attention span, normal concentration, normal language and normal fund of knowledge Cranial Nerves: CN 2 - no visual defect on confrontation and pupils round, equal, reactive to light CN 3, 4, 6 - extra-ocular movements intact and no nystagmus CN 5 - facial sensation intact CN 7 - no facial asymmetry CN 8 - intact hearing CN 9, 10 - palate symmetric, normal gag CN 11 - good shoulder shrug CN 12 - tongue midline MOTOR: Strength was at least antigravity throughout, Pronator drift was absent and There were no abnormal movements SENSATION: intact and symmetric to pinprick, light touch, vibration and joint position GAIT: stable, no ataxia and can perform tandem walking COORDINATION: no ataxia with finger to nose testing and heel to rm testing REFLEXES: cannot assess over telemedicine NIH Stroke Scale: 1a. Level of Consciousness: alert = 0 1b. LOC Questions: (month, age): both correct = 0 1c. LOC Commands (open and close eyes, make fist and let go using non-paretic hand): obeys both correctly = 0 2. Best Gaze (eyes open and patient follows examiner's finger or face): normal = 0 3. Visual (visual threat or finger counting in each quadrant): no loss = 0 4. Facial Palsy (show teeth, raise eye brows and squeeze eyes shut, or grimace symmetry in a comatose patient): normal = 0 5a. Motor Arm (extend arm (palms down) to 90 degrees and score drift/movement (10 seconds) - Left: no drift = 0 5b. Motor Arm: (extend arm (palms down) to 90 degrees and score drift/movement (10 seconds) - Right: no drift = 0 6a. Motor Leg (elevate leg 30 degrees and score drift/ movement (5 seconds) - Left: no drift = 0 6b. Motor Leg (elevate leg 30 degrees and score drift/ movement (5 seconds) - Right: no drift = 0 7. Limb Ataxia (finger to nose, heel down rm): absent = 0 8. Sensory (pin prick to face, arm, trunk and leg, compare side to side): norm al = 0 9. Best Language: no aphasia = 0 10. Dysarthria (evaluate speech clarity by patient repeating listed words): normal articulation = 0 11. Extinction and Inattention: no neglect = 0 Total: 0 Results & Data Vital Signs (Past 12 Hours) Vital Signs Temp Pulse Pulse Resp BP Pulse Ox O2 Del Method 08/21/24 15:00 73 08/21/24 11:30 36.5 C 80 16 122/80 96 Room Air 08/21/24 08:08 94 H 08/21/24 07:42 36.5 C 94 H 18 131/90 97 Room Air Laboratory Results Laboratory Results - last 24 hr 08/21/24 05:53 WBC 6.81 RBC 5.57 Hgb 16.3 Hct 46.1 MCV 82.8 MCH 29.3 MCHC 35.4 RDW Std Deviation 37.7 RDW Coeff of Joselin 12.5 Plt Count 472 H MPV 9.0 L Sodium 139 Potassium 4.3 Chloride 105 Carbon Dioxide 28 Anion Gap 6 BUN 16 Creatinine 1.15 Est Cr Clr Drug Dosing 84.9 eGFR 79.49 BUN/Creatinine Ratio 13.9 Glucose 103 H Estimat Average Glucose 111 Hemoglobin A1c 5.5 Calcium 9.9 Magnesium 2.1 Triglycerides 92 Cholesterol 240 H LDL Cholesterol, Calc 172 VLDL Cholesterol, Calc 18 HDL Cholesterol 50 Cholesterol/HDL Ratio 4.[address] ANGIOGRAPHY OF THE NECK WITH CONTRAST Findings: Visualized portions of the lung apices are unremarkable. There is no cervical lymphadenopathy. There are no cervical spine fractures. There is a 1.4 cm cystic left lobe thyroid nodule. The bilateral common carotid, cervical internal carotid and vertebral arteries are patent. There is no stenosis or dissection within the neck. There is no aneurysm within the neck. CTA of the head will be reported separately. IMPRESSION: Unremarkable CTA of the neck. Brain MRI 08/20/24 15:55 MRI OF THE BRAIN WITHOUT AND WITH IV CONTRAST CLINICAL HISTORY: TIA COMPARISON STUDY: Head CT and CTA of the head performed earlier today. TECHNIQUE: Utilizing a 1.5 Lora magnet and dedicated coil, multiplanar, multiecho imaging of the brain was performed pre and postcontrast administration. IV administration of 9 mL of Gadavist contrast was uneventful. FINDINGS: There are no foci of restricted diffusion to suggest acute infarct. No acute intracranial hemorrhage, midline shift or mass effect is present. Brain volume is normal. Ventricular system is normal. Basal cisterns are patent. Flow- voids for the major intracranial vessels are present. There is no intracranial mass or pathologic enhancement. No significant parenchymal signal abnormality is identified. Calvarial signal is normal. Sinuses and orbits are unremarkable. IMPRESSION: Unremarkable MRI of the brain. No evidence for acute infarct. ACT 112: Negative or not required by law. Electronically signed by: Theo Watt M.D. 08/21/2024 12:26 PM Head MRA 08/20/24 15:55 Clinical history: Left extremity weakness Technique: Magnetic resonance angiography was performed of the [place] of [place] using a 3 D time of flight technique. Angiographic reconstructions were obtained Findings: The visualized internal carotid arteries appear unremarkable bilaterally. No definite stenosis or aneurysm is identified of the anterior, middle, or posterior cerebral artery circulations bilaterally. The cerebellar arteries are patent. The basilar artery appears unremarkable. No vascular malformation is seen. No other definite abnormality is noted. Impression: Unremarkable MRA of the brain Electronically signed by Kota Anne 08-20-2024 5:45 PM Echocardiogram done 08/20/2024, the ventricular EF of 60-65%, left ventricular wall motion is normal, no valvular pathology. Normal-sized left atrium and right atrium, no evidence of PFO on contrast injection. Medications Administered Home Medications Medication Instructions Recorded Confirmed Last Taken No Known Home Medications 08/20/24 08/20/24 Unknown Active Medications Generic Name Dose Route Start Last Admin Trade Name Freq PRN Reason Stop Dose Admin Aspirin 81 mg 08/21/24 09:00 08/21/24 09:05 Aspirin 81 Mg Ectab PO 09/20/24 08:59 81 mg QAM SEVERINO Administration Atorvastatin Calcium 40 mg 08/21/24 09:00 08/21/24 09:05 Atorvastatin 40 Mg Tab PO 09/20/24 08:59 40 mg QAM SEVERINO Administration ECG Additional Comments: EKG shows normal sinus rhythm
[2024-08-21 16:40] VITALS: TEMP 97.9
[2024-08-21] MEDS ORDERED: STROKE PATIENT DISCHARGE STA (16:53)
[2024-08-21 17:03] VITALS: BP 126/77; PULSE 92
--- NOTE | 2024-08-22 07:31 | Discharge Summary ---
Date of Service August 22, 2024 Admission HPI Per Admitting Provider This is a 48-year-old male without past medical history, who presented to the ER today while having developed left arm weakness and numbness, left hand weakness and was trying to tighten up a fitting with pipe, which lasted approximately 1 minute. He has never had this happen before. 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 Denies any electrical shock, trauma, or injury sustained to this area of his body or head or neck. he admits to transient dizziness when the numbness occurred. Denies any changes in vision, headache, changes in smell, nausea, vomiting, etc. He does not take any home medications. Pt admits to feeling anxious while being here, but otherwise his symptoms have resolved. Patient underwent CT imaging which showed a right carotid artery filling deficit measuring 3 mm which was reported by the radiologist as possibly artifact versus a filling defect caused by thrombus, and therefore MRI is recommended. No surgical history. Family Hx: Dad: Type I Diabetes, Brother: 48 yo had Heart attack, now age 51 and also hx of colon cancer Social hx: no tobacco use, occasional alcohol use, no ilicit drug use. Admission Exam Per Admitting Provider Vitals signs as noted above General Appearance:Moderately built and nourished, no apparent distress Head: normocephalic, Atraumatic Eyes: normal inspection, EOMI Neck: supple, Trachea midline Respiratory/Chest: Normal breath sounds, CTA, No accessory muscle use Cardiovascular: S1, S2, No murmur Abdomen/GI:Soft, Non tender, Bowel sounds present Extremities/Musculoskeletal:normal inspection, no edema Neurologic/Psych:AAOX3, grossly no focal neurological deficits Skin: normal color, warm Principal Diagnosis TIA Discharge Exam Lying in bed without any acute distress Constitutional well developed, well nourished and + obese; not ill appearing ENMT external ear and nose normal, oropharynx normal Neck trachea midline, no thyromegaly Respiratory no respiratory distress Auscultation: lungs clear to auscultation bilaterally Cardiovascular Rate/Rhythm: regular rate and regular rhythm; not tachycardic Heart Sounds: normal S1 and normal S2; no murmur Extremities: no edema Gastrointestinal (Abdomen) Inspection/Auscultation: normal bowel sounds; abdomen not distended Percussion/Palpation: abdomen soft; abdomen nontender Neurologic normal touch/pain/proprioception and moves all extremities; no focal motor deficits Psychiatric A+Ox3, euthymic affect Lymphatic no cervical or axillary lymphadenopathy Discharge Data Allergies Allergy/AdvReac Type Severity Reaction Status Date / Time No Known Allergies Allergy Unverified 08/20/24 12:41 Consultations 08/20/24 12:56 ED Decision to Admit Stat 08/20/24 15:55 Consult Neurology Routine Ordered Studies 08/20/24 11:14 CT angio head w con Stat CT angio neck with con Stat CT head/brain wo con Stat 08/20/24 15:55 MR angio head wo con Urgent MRI Brain [MR brain wo/w con] Urgent Hospital Course (1) Numbness and tingling in left arm: Possible TIA Acute Left arm weakness and numbness Elevated Blood Pressure - Stroke order set completed, no indication for thrombolytic - CT head reviewed and is showing Right carotid 3 mm filling defect within the inferior aspect of the right cavernous carotid - MRI and MRA brain ordered to further evaluate-Remained unremarkable - Tele-neurology contacted by the ER- Recs aspirin and plavix - Will allow permissive hypertension with SBP 140-170 - Neurology consulted-awaiting input and recommendation - PT/OT consults placed-has been ambulating without any difficulties - Check A1C-5. See5, lipids with am labs-triglycerides 92, total cholesterol 240, LDL 170 and HDL 50 - Full dose asa given in the ER, start asa 81 mg daily and atorvastatin 40 mg HS -Remains medically stable without any neurological symptoms on examination -He wants to be discharged and awaiting further recommendations -Echo of the heart showed normal LV systolic function with EF 60 to 65%, LV wall motion is normal, there is no LV abnormal relaxation, no significant valvular pathology and no interatrial shunt He was seen by neurologist and was advised to go home on aspirin 81 mg daily and low-dose statin He will be discharged home this afternoon DVT ppx: teds, scds, ambulatory Lines: PIV x 1 FEN/GI: Regular diet CODE: Full code Total Time Total Time Spent Total Time Spent (In Minutes): 35 minutes Discharge Plan Discharge Items Patient Disposition: Home - Self-Care Reason For Visit: STROKE LIKE SYMPTOMS Discharge Diagnosis: TIA Condition on Discharge: Good Activity: Resume your previous activity Non-emergency contact: Primary Care Provider Call non-emergency contact if: you have any medication questions and your symptoms worsen Follow-up/Referrals: Reitnauer,Clarice A., SHAHRAM [Primary Care Provider] - ( Please make an appointment with your PCP within 7 days) Diet: Regular Addtl Attending Provider Instructions: Please make an appointment with the PCP within 7 days Take your medications as advised Pending Studies at Discharge: No Stand-Alone Forms: My [facility], Work/School Release, Smoking Cessation, Medications to Prevent Stroke Medications and DC Order Prescriptions: New aspirin 81 mg Tablet,Delayed Release (Dr/Ec) 81 mg PO QAM Qty: 30 0RF atorvastatin [Lipitor] 10 mg tablet 10 mg PO DAILY Qty: 30 0RF Discharge Orders: Discharge Order (Routine); Ordered 08/21/24 Ordered By: Rula Buchanan Admission Data Admit Date/Time: 08/20/24 12:59 Attending Provider: Rula Buchanan Admit Provider: Dago Underwood Primary Care Provider: Clarice Stevenson Other Providers: Dago Underwood; Loni Wilkes Other Interventions: Discharge Summary Assessment (RN) Last Done: 08/21/24 17:01
--- NOTE | 2024-08-25 12:10 | Pharmacy Report ---
Pharmacist Stroke Counseling - Date of Service August 25, 2024 - Scope: Pharmacy has been consulted to provide medication discharge counseling for this patient admitted with transient ischemic attack as per the Pharmacist Discharge Counseling for Stroke Patients Protocol. - Medications on Discharge: New Rx's Medication Instructions Recorded aspirin 81 mg tablet,delayed 81 mg PO QAM #30 tabs 08/21/24 release atorvastatin 10 mg tablet (Lipitor) 10 mg PO DAILY #30 tabs 08/21/24 - Action: The above medications, specifically ones for stroke treatment/prophylaxis, have been reviewed in detail with the patient and/or patient customer care representative(s) prior to discharge. This includes indication, common adverse reactions, drug interactions, and medication administration. Medication counseling has been employed using the teach-back method to ensure understanding. - Outcome: The patient and/or patient customer care representative(s) have demonstrated understanding of the medications. Thank you for allowing pharmacy to be involved in the care of this patient. Please call [phone] with any additional questions
== END 2024-08-21 17:39 | disposition home or self-care (01) ==
LOC: ED 10:20 → 2N 10:20 → SUATTDRO 12:59 → 2N 15:14